=== PATIENT | male | born 1985 | race Caucasian/White ===

== ENCOUNTER 2021-01-07 11:59 | Emergency (ER) | payer MEDICARE, MEDICAID, SELFPAY ==
[2021-01-07 12:05] VITALS: BP 132/76; PULSE 98; RESP 16; TEMP 37.1; O2SAT 98
--- NOTE | 2021-01-07 12:17 | ED.GENADULT ---
HPI - General Adult General Chief complaint: Urogenital-Male Stated complaint: std testing Time Seen by Provider: 01/07/21 12:17 Source: patient and RN notes reviewed Mode of arrival: ambulatory Limitations: no limitations History of Present Illness HPI narrative: 35-year-old male presents with possible STD complaints for the past 2 days. Scott reports girlfriend told him she tested positive for Chlamydia on 01/05/2021. Denies dysuria, burning, urgency, and frequency. No treatment. Denies fever. Denies nausea, vomiting, and abdominal pain. Tolerating liquids well. No significant penile pain. No penile discharge. Concern for STDs due to girlfriend reporting findings and unprotected intercourse. Denies unprotected intercourse with multiple partners. No flank pain. No exacerbating factors. Denies unusual penile bleeding. Remains active. The patient reports he was diagnosed with COVID-10 September 2020, no current symptoms. The patient reports he is not waiting for the results of a COVID-19 lab test. The patient reports he do not have chills, weakness, or fatigue. The patient reports he do not have a new or worsening cough or shortness of breath. Denies chest pain. The patient reports he do not have any rhinorrhea, congestion, loss of taste or smell, sore throat, and diarrhea. Denies recent traveling. Denies concerns for COVID-19 or exposures been home with limited outdoor exposure except for essential household needs, work, and return home. At this time, patient is not suspected of having COVID-19. Some parts of this dictation were generated by voice recognition software and may contain typographical and/or grammatical inaccuracies. Related Data Allergies Allergy/AdvReac Type Severity Reaction Status Date / Time morphine Allergy Unknown Nausea and Verified 01/07/21 12:07 Vomiting Review of Systems Review of Systems: Narrative: CONSTITUTIONAL: Denies fever, chills, sweats. EYES: Denies visual changes, redness, discharge. ENT: Denies rhinorrhea, congestion, sore throat, otalgia. CARDIOVASCULAR: Denies chest pain, palpitations, edema. RESPIRATORY: Denies dyspnea, wheezing, cough. GASTROINTESTINAL: Denies abdominal pain, nausea, vomiting, diarrhea. GENITOURINARY: Denies dysuria, hematuria, genital discharge, itching. Complains of possible STD. SKIN: Denies rash or itching. MUSCULOSKELETAL: Denies acute back pain, joint pain, or myalgia. NEUROLOGIC: Denies numbness or focal weakness. PSYCHIATRIC: Denies anxiety or depression. All systems reviewed & are unremarkable except as noted in HPI and below. COUNTS INCLUDE 234 BEDS AT THE [facility] Past Medical History Medical History (Updated 01/13/21 @ 04:48 by BUNNY Juarez) COVID-19 (~08/2020) History of broken collarbone Smoker TBI (traumatic brain injury) Surgical History Surgical History (Updated 01/07/21 @ 12:36 by BUNNY Juarez) History of shoulder surgery clavicle surgery Family History Family History (Updated 01/07/21 @ 12:37 by BUNNY Juarez) Father Medical history unknown Mother Alive and well Social History Social History (Updated 01/07/21 @ 12:38 by BUNNY Juarez) Smoking packs per day: 0.5 Smoking cigarettes per day: 10.0 Years smoked: 10 Smoking pack-years: 5.00 Smoking status: Current every day smoker Tobacco type: cigarettes Second hand tobacco smoke exposure: Yes Alcohol intake: never Substance use: current Substance use type: marijuana Living arrangements: with family Occupation/Education: occupation Gender identity (if verbalized by the patient): Male Sexual Orientation (if Verbalized by the Patient): Straight or Heterosexual Comments At time of signature, agree with nurse past medical, surgical, social, and family history. There is no relevant family history pertinent to the presenting complaint. Exam Narrative: Exam Narrative: GENERAL: This is a well-nourished, well-dev
--- NOTE | 2021-01-07 12:34 | PC.NURSE ---
no culture sent per provider
[2021-01-07] MEDS: metroNIDAZOLE 250 MG TABLET 2000 MG PO (12:40)
[2021-01-07] MEDS: LIDOCAINE HCL 1% LOCAL INJ 10 ML VIAL 1.8 ML INFILTRATE (12:50)
[2021-01-07] MEDS: cefTRIAXone 1 GM VIAL 0.5 GM IM (12:50)
--- NOTE | 2021-01-07 13:51 | PC.NURSE ---
Addendum entered by Nenita Ruiz RN 01/07/21 13:52: pharmacy aware of need to refill rocephin 250mg vials Original Note: noted confirmed orders with Aurea Omer NP prior to administration
== END 2021-01-07 13:10 | disposition home or self-care (01) ==
PROVIDERS: Emergency Provider Nurse Practitioner Family
DX: Z20.2 Contact with and (suspected) exposure to infections with a predominantly sexual mode of transmission (principal); F17.210 Nicotine dependence, cigarettes, uncomplicated
CPT/HCPCS: 81003; 87491; 87591; 87661; 96372; 99213; A9270; G0463; J0696

== ENCOUNTER 2022-02-07 17:55 | Emergency (ER) | payer MEDICARE, MEDICAID, SELFPAY ==
--- NOTE | 2022-02-07 18:02 | ED.BACK ---
HPI - Back Pain/Injury General Chief Complaint: Back Pain/Injury Stated Complaint: Back Injury Time Seen by Provider: 02/07/22 18:17 Source: patient and RN notes reviewed Mode of arrival: ambulatory Limitations: no limitations History of Present Illness HPI Narrative: 36-year-old male presents with concern for injuries after falling during a seizure. Reports prior to arrival he had a seizure and fell into a [employer] truck. He is reporting left lower jaw pain, neck pain, facial pain, coccyx pain. He denies being on blood thinners. Reports he lost consciousness during the seizure is currently having blurry vision. He reports this happens to me all the time . Patient reports a history of seizures after a traumatic brain injury for which he takes Keppra. MD elicited complaint: back pain Related Data Home Medications Medication Instructions Recorded Confirmed levetiracetam 1,000 mg PO DAILY 02/07/22 02/07/22 Allergies Allergy/AdvReac Type Severity Reaction Status Date / Time morphine Allergy Unknown Nausea and Verified 02/07/22 18:13 Vomiting Review of Systems Review of Systems: CONSTITUTIONAL: Denies malaise, chills, sweats, or fever. EYES: Reports blurry vision CARDIOVASCULAR: Denies chest pain, palpitations, or edema. RESPIRATORY: Denies cough or dyspnea. GASTROINTESTINAL: Denies abdominal pain, nausea, vomiting, diarrhea, loss of bowel function GENITOURINARY: Denies dysuria, hematuria, frequency, loss of bladder function. SKIN: Denies rash or itching. MUSCULOSKELETAL: Reports mid back pain, reports left jaw, ear pain, facial pain NEUROLOGIC: Reports recent seizure, tingling in his legs All systems reviewed & are unremarkable except as noted in HPI and below PMFSH Past Medical History Medical History (Updated 02/07/22 @ 18:45 by Dhara Lauren NP) COVID-19 (~08/2020) History of broken collarbone Smoker TBI (traumatic brain injury) Surgical History Surgical History (Updated 01/07/21 @ 12:36 by BUNNY Juarez) History of shoulder surgery clavicle surgery Family History Family History (Updated 01/07/21 @ 12:37 by BUNNY Juarez) Father Medical history unknown Mother Alive and well Social History Social History (Updated 01/07/21 @ 12:38 by BUNNY Juarez) Smoking packs per day: 0.5 Smoking cigarettes per day: 10.0 Years smoked: 10 Smoking pack-years: 5.00 Smoking status: Current every day smoker Tobacco type: cigarettes Second hand tobacco smoke exposure: Yes Alcohol intake: never Substance use: current Substance use type: marijuana Gender identity (if verbalized by the patient): Male Sexual Orientation (if Verbalized by the Patient): Straight or Heterosexual Comments At time of signature, agree with nursing past medical, surgical, social and family history. There is no relevant family history pertinent to the presenting complaint Exam Narrative: GENERAL: Nontoxic-appearing, appears to be in pain HEAD: Normocephalic abrasions noted to the left side of the face EYES: PERRLA NECK: Supple. CHEST: Speaks in complete sentences no respiratory distress. HEART: Regular rate and rhythm. SKIN: Abrasions noted to the left face NEURO: Alert and oriented x3, seems confused at times PSYCH: Tearful Course Course Emergency Course: Discussed with patient that a more appropriate place for his care would be the emergency room due to his recent seizure, his stated complaints, appearance upon exam which is including tearful crying, he appears to be in pain, he at times does not seem fully coherent. Patient declined transfer to the emergency room 3 times, despite repeated explanations that this is not an appropriate level of care. Patient states that this happens all the time and he is not bleeding inside of his brain. After patient's grandmother arrived she was able to talk him into going to the emergency room however she was not able to talk
[2022-02-07 18:03] VITALS: BP 132/81; PULSE 128; RESP 14; TEMP 37.1; O2SAT 97
--- NOTE | 2022-02-07 18:17 | PC.NURSE ---
Pt unsure of medications other then Keppra at this time.
== END 2022-02-07 18:40 | disposition short-term general hospital (02) ==
PROVIDERS: Emergency Provider Nurse Practitioner
DX: G40.909 Epilepsy, unspecified, not intractable, without status epilepticus (principal); S09.90XA Unspecified injury of head, initial encounter; W19.XXXA Unspecified fall, initial encounter; F17.210 Nicotine dependence, cigarettes, uncomplicated; F12.90 Cannabis use, unspecified, uncomplicated; Z87.820 Personal history of traumatic brain injury; Z86.16 Personal history of COVID-19
CPT/HCPCS: 99213; G0463

== ENCOUNTER 2025-01-21 13:45 | Emergency (ER) | payer MEDICARE, MEDICAID, SELFPAY ==
[2025-01-21 13:59] VITALS: BP 119/74; PULSE 97; RESP 16; TEMP 35.7; O2SAT 100
[2025-01-21] MEDS: KETOROLAC (*BKC) 60 MG/2 ML VIAL IM (14:18)
--- NOTE | 2025-01-21 14:25 | ED.SKABFB ---
HPI - Skin/Abscess/Foreign Bdy General Chief complaint: Skin/Abscess/Foreign Body Stated complaint: Skin Sore/Face Time Seen by Provider: 01/21/25 14:10 Source: patient and RN notes reviewed Mode of arrival: ambulatory Limitations: no limitations History of Present Illness HPI narrative: 39-year-old male presents Express Care complaining right facial swelling and a wound to his right face for last 2 months. Patient does an ingrown hair that is been draining yellow discharge over the last 2 months has gotten progressively worse. He said this week he says he feels like his vision is becoming more blurry on the right eye and it hurts to open his jaw. Patient has significant past medical history includes seizure disorder. Patient has tried anything [id number] other than using marijuana for symptom management. Patient denies any swelling inside his mouth, difficulty breathing, difficulty swallowing, chest pain, fevers, body aches, chills. Patient rates his pain a 10/10. Related Data Home Medications ?Medication ?Instructions ?Recorded ?Confirmed ?Last Taken ?Type levetiracetam 1,000 mg tablet 1,000 mg PO DAILY 02/07/22 02/07/22 Unknown History Allergies Allergy/AdvReac Type Severity Reaction Status Date / Time morphine Allergy Unknown Nausea and Verified 01/21/25 13:59 Vomiting Review of Systems Review of Systems: CONSTITUTIONAL: Denies fever, chills, or sweats. EYES: Denies visual changes, redness, or discharge. ENT: Denies rhinorrhea, congestion, sore throat, or otalgia. CARDIOVASCULAR: Denies chest pain, palpitations, or edema. RESPIRATORY: Denies cough or dyspnea. GASTROINTESTINAL: Denies abdominal pain, nausea, vomiting, or diarrhea. GENITOURINARY: Denies dysuria or hematuria. SKIN: Denies rash or itching. Positive for wound on face. MUSCULOSKELETAL: Denies back pain, joint pain, or myalgia. NEUROLOGIC: Denies headache, numbness, or weakness. PSYCHIATRIC: Denies anxiety or depression. All other systems reviewed are negative, except as documented in HPI. [facility] Past Medical History Medical History COVID-19 (~08/2020) Smoker History of broken collarbone TBI (traumatic brain injury) Surgical History Surgical History History of shoulder surgery clavicle surgery Family History Family History Father Medical history unknown Mother Alive and well Social History Social History Smoking packs per day: 0.5 Smoking cigarettes per day: 10.0 Years smoked: 10 Smoking pack-years: 5.00 Smoking status: Current every day smoker Tobacco type: cigarettes Second hand tobacco smoke exposure: Yes Alcohol intake: never Substance use: current Substance use type: marijuana Living arrangements: with family Occupation/Education: occupation Gender identity (if verbalized by the patient): Male Sexual Orientation (if Verbalized by the Patient): Straight or Heterosexual Comments At the time of my signature, I reviewed and agree with the nursing past medical, surgical, social, and family history. There is no relevant family history pertinent to the patient complaint. Exam Narrative: GENERAL: This is a well-nourished, well-developed adult, in no apparent distress. They are non ill-appearing, nontoxic appearing. HEAD: normocephalic, atraumatic. EYES: Sclera clear/white. Conjunctiva normal. Vision is grossly intact. Extraocular movements intact. Pupils PERRLA EARS: External ears normal, auditory canals clear and without drainage, TMs normal without perforation. Hearing grossly intact. NOSE: External nose normal with no obvious nasal discharge, nasal turbinates without redness, no rhinorrhea. THROAT: Mucous membranes moist, posterior pharynx clear, without erythema or swelling. Uvula midline. MOUTH: Teeth intact. No gingivitis. No area of fluctuance or swelling. No tenderness or swelling in the tongue. No trismus. NECK: Neck supple, non-tender without lymphadenopathy, masses or thyromegaly. CARDIOVASCULAR: Regular rate and rhythm without murmurs, gallops, or rubs. RESPIRATORY: Clear to auscultation. Breath sounds equal bilaterally. No wheezes, rales, or rhonchi. Respiratory effort nonlabored normal respiratory rate, no apparent respiratory distress. GASTROINTESTINAL: Abdomen soft, non-tender, nondistended. Bowel sounds are active. No hepato-splenomegaly, or palpable masses. No guarding. SKIN: Face: Single raised erythematous papule to right side of the patient's face located near the right jaw. There is surrounding cellulitis and induration. The wound measures approximately 1.5 cm by 1.5 cm. Wound is draining yellow discharge. No area of fluctuance. No obvious redness, swelling, or cellulitis around periorbital region. There is tender to palpation to the periorbital region. NEURO: awake, alert, and oriented to person, place and time. There were no obvious focal neurologic abnormalities. EXTREMITIES: No joint tenderness, effusion, or edema noted. Course Course Emergency Course: Portions of this record may have been created with voice recognition software Level of Care: Express Care Visit Vital Signs Vital signs: Vital Signs Temperature 96.2 F L 01/21/25 13:59 Pulse Rate 97 01/21/25 13:59 Respiratory Rate 16 01/21/25 13:59 Blood Pressure 119/74 01/21/25 13:59 Pulse Oximetry 100 01/21/25 13:59 Oxygen Delivery Room Air 01/21/25 13:59 Temperature 96.2 F L 01/21/25 13:59 Pulse Rate 97 01/21/25 13:59 Respiratory Rate 16 01/21/25 13:59 Blood Pressure 119/74 01/21/25 13:59 Pulse Oximetry 100 01/21/25 13:59 Oxygen Delivery Room Air 01/21/25 13:59 Reviewed MDM - Skin/Abscess/Foreign Bdy MDM Narrative Medical decision making narrative: Given patient's symptoms and his complaint of vision changes, it is recommended that this patient seek a higher level care at an emergency department for further evaluation and management. Patient adamantly refusing to go to the emergency department for further evaluation. Patient has swelling to patient's right side, however the wound is draining, therefore no need for incision and drainage. Patient is having vision changes, there is no redness or swelling around the orbit of the patient's right eye however that orbit is tender to palpation. No evidence of abscess formation inside the oropharynx. Patient will be signing out against medical advice. Patient was given a dose of Toradol for pain with significant improvement of pain. Will treat with antibiotics antibiotics with cephalexin and Bactrim. Strict ER return precautions discussed. Differential Diagnosis Differential diagnosis: Likely abscess of skin or subcutaneous tissue, cellulitis and other (Orbital cellulitis) Critical Care Time Critical Care Time Critical Care Time: No Discharge Plan Discharge Clinical Impression: Cellulitis Qualifiers: Site of cellulitis: face Qualified Code(s): L03.211 - Cellulitis of face Patient Disposition: Left Against Medical Advice Condition: Stable Additional Instructions: You have decided to leave against medical advice. Please take the antibiotics as directed. If you symptoms do not get better in the next couple days on antibiotics, you have worsening vision changes, or your condition worsens, you need to go to the ER immediately. Patient Language: Romansh Prescriptions: New sulfamethoxazole-trimethoprim [Bactrim DS] 800-160 mg tablet 1 tablet PO Q12H 7 Days Qty: 14 0RF cephalexin 500 mg capsule 500 mg PO Q6H 7 Days Qty: 28 0RF No Action levetiracetam 1,000 mg tablet 1,000 mg PO DAILY Follow-up/Referrals: UNKNOWN,DOCTOR [Primary Care Provider] - Time of Disposition: 14:15
--- OUTSIDE RECORDS SUMMARY | 2025-01-21 14:38 | XMS_ITS | Continuity of Care Document ---
Author Organization [facility] Address [address] [place] [address] Phone Care Team Providers Care Bird Raiser Name Role Phone Will Trejo MD Unavailable Unavailable Advance Directives Directive Yes / No Effective Date File Name No Information Encounters Encounter Description Practice Location Reason(s) For Visit Diagnoses Date Provider Providers Copied on Encounter [facility], [address], [place], [place], [id number], [place] tel:[phone] [address] Julio ARGUELLES Professional No Information Nov-3 1-200 5 Maya Solis. [address] [facility] [address], [place], [place], [id number], [place]. tel:[phone] Family History Family Member Type Diagnosis Age At Onset No Information Payers Payer name Insurance type Covered democrat ID Authoriza tion(s) [facility] [id number] Social History Type Description Quantity Date Captured [...]
--- OUTSIDE RECORDS SUMMARY | 2025-01-21 14:38 | XMS_ITS | CONTINUITY OF CARE DOCUMENT ---
Author Name howie denise Address Unknown Organization [facility] Address [address] [place] [address] Phone [phone] Care Team Providers Care Arc Cutter Plasma Arc Name Role Phone Layton REDDY, Diony Unavailable LIZZY SOTO MD Unavailable INSURANCE PROVIDERS Payer name Policy type / Coverage type [place] red green party ID [id number] PAY [id number]
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
--- OUTSIDE RECORDS SUMMARY | 2025-01-21 14:38 | XMS_ITS | Encounter Summary ---
Author Organization [facility] Address [address] [place] [address] Phone Care Team Providers Care Fire Support Man Name Role Phone Ricky Lilly MD Primary Care Provider [phone] Pete Hsieh PAC Unavailable [phone] Rosa Cho DIDACTIC INSTRUCTOR, INSPECTOR METAL FABRICATING Unavailable [phone]- [phone] Encounter Details Date Type Department Care Team (Late st Contact Info) Description 01/21/2025 Telephone [facility] - Family Medicine [facility] [address] [place] [address] Ricky Lilly MD [address] [id number] Social History Tobacco Use Types Packs/Day Years Used Date Smoking Tobacco: Every Day Cigarettes Smokeless Tobacco: Never Alcohol Use Standard Drinks/Week Comments Yes 0 (1 standard drink = 0.6 oz pur e alcohol) rarely C Utilities Answer Date Recorded In the past 12 months has [employer], gas, oil, or water company threatened to shut off services in your [...] any time in the past 12 m [facility], were you homeless or living in a skilled nursing (including now)? No 04/27/2024 Sexually Active Control Partners Comments Yes Female Sex and Gender Information Value Date Recorded Sex Assigned at Not on file Legal Sex Male 8:02 PM CDT Gender Identity Not on file Sexual Orientation Not on file documented as of this encounter Miscellaneous Notes * Telephone Encounter - Ricky Lilly MD - 01/21/2025 11:10 AM CDT Schedule him for telephone visit with [place] since he no-showed. Thanks! 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
--- OUTSIDE RECORDS SUMMARY | 2025-01-21 14:38 | XMS_ITS | Clinical Summary ---
Author Organization [facility] Address [address] [place] [address] Care Team Providers Care Aircraft Inspection Record Clerk Name Role Phone Unavailable Primary Care Provider Unavailabl e Source Comments [facility],non-owned Affiliates and Associated Physician Practices is amultiple site organization consisting of ambulatory clinics and hospital sitesin [place], [place], [place] and [place]. This disclosure is being madepursuant to the Care Everywhere program and may not contain all information available regarding this patient. Last updated 18.[facility] [employer] Social History Tobacco Use Types Packs/Day Years Used Date Smoking Tobacco: Never Assessed Sex and Gender Information Value Date Recorded Sex Assigned at Not on file Legal Sex Male 5:01 AM CDT Gender Identity Not on file Sexual Orientation Not on file Last Filed Vital Signs Vital Sign Reading Time Taken Comments Blood Pressure 121/73 07/01/2016 8:17 AM CDT Pulse 71 07/01/2016 8:17 AM CDT Temperature 36.8 C (98.3 F) 07/01/2016 8:17 AM CDT Respiratory Rate 18 07/01/2016 8:17 AM CDT Oxygen Saturation 100% 07/01/2016 8:17 AM CDT Inhaled Oxygen Concentration - - Weight - - Height 180.3 cm (5' 11 ) 06/30/2016 12:46 AM CDT Body Mass Index - - Plan of Treatment Health Maintenance Due Date Last Done Comments LIPID TESTING 1983 HIV SCREENING 1998 HEPATITIS C SCREENING 04/28/2001 DTAP/TDAP/TD VACCINES (1 - Tdap) 2002 HEPATITIS B VACCINE (1 of 3 - 19+ 3-dose series) 2002 COVID-19 VACCINE (2023-2 5 season) 2024 DEPRESSION SCREENING 09/23/2024 INFLUENZA VACCINE (Season Ended) 2025 ZOSTER VACCINE (1 of 2) 2033 HIB VACCINE Aged Out No longer eligi ble based on patient's age to complete this topic HPV VACCINE Aged Out No longer eligi ble based on patient's age to complete this topic MENINGOCOCCAL (Group B) VACC INE SHARED DECISION-MAKING Aged Out No longer eligibl e based on patient's age to complete this topic MENINGOCOCCAL GROUPS A/C/Y/W VACCINE Aged Out No longer eligible b ased on patient's age to complete this topic PNEUMOCOCCAL VACCINE Aged Out No long er eligible based on patient's age to complete this topic Insurance MEDICARE MEDICAID - [facility] OF [facility]
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
== END 2025-01-21 14:48 | disposition left against medical advice (07) ==
DX: L03.211 Cellulitis of face (principal); G40.909 Epilepsy, unspecified, not intractable, without status epilepticus; F17.210 Nicotine dependence, cigarettes, uncomplicated; F12.90 Cannabis use, unspecified, uncomplicated; Z86.16 Personal history of COVID-19; Z87.820 Personal history of traumatic brain injury
CPT/HCPCS: 96372; 99213; G0463; J1885

== ENCOUNTER 2025-04-01 08:24 | Emergency (ER) | payer MEDICARE, MEDICAID, SELFPAY ==
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
--- OUTSIDE RECORDS SUMMARY | 2025-04-01 08:28 | XMS_ITS | Continuity of Care Document ---
Author Organization [facility] Address [address] [place] [address] Phone Care Team Providers Care Oil Heater Operator Name Role Phone Will rTejo MD Unavailable Unavailable Advance Directives Directive Yes / No Effective Date File Name No Information Encounters Encounter Description Practice Location Reason(s) For Visit Diagnoses Date Provider Providers Copied on Encounter [facility], [address], [place], [place], [id number], [place] tel:[phone] SEC Julio ARGUELLES Professional No Information Nov-3 1-200 5 Maya Solis. [address] [facility] [address], [place], [place], [id number], [place]. tel:[phone] Family History Family Member Type Diagnosis Age At Onset No Information Payers Payer name Insurance type Covered democrat ID Authoriza tion(s) [facility] [id number] Social History Type Description Quantity Date Captured [...]
--- OUTSIDE RECORDS SUMMARY | 2025-04-01 08:28 | XMS_ITS | Clinical Summary ---
Author Organization [facility] Address [address] [address] Phone Care Team Providers Care Dry Wall Sprayer Name Role Phone Ricky Lilly MD Primary Care Provider [phone] Pete Hsieh PAC Unavailable [phone] Rosa Cho NEUROPSYCHOLOGY DIRECTOR, SENIOR STATISTICIAN Unavailable [phone]- [phone] Allergies Active Allergy Reactions Criticality Noted Date Comments Morphine Vomiting 06/06/2017 Medications acetaminophen-c odeine (TYLENOL #3) 300-30 MG TabletIndicatio ns:Acute pain of right shoulder Take 1 Tablet by mouth 2 times daily. 20 Tablet 4 Active Additional Information Patient not taking.Reported on 03/01/2025 tiZANidine (ZANAFLEX) 2 MG Tablet Take 1 - 2 pills at bedtime. 40 Tablet 4 Active Additional Information Patient not taking.Reported on 03/01/2025 lamoTRIgine (LaMICtal) 25 MG TabletIndicatio ns:Seizure disorder [...] Encounters Date Type Department Care Team Description 03/01/2025 11:30 AM CDT Office Visit [facility] [address] [place] [address] Gene Araiza APRN, CASER IN Chronic right shoulder pain (Primary Dx) Discharge Disposition: Discharged to home or Selfcare 03/01/2025 Travel [facility] [place] [address] Ricky Lilly MD 01/15/2025 5:36 PM CDT - 01/15/2025 8:02 PM CDT [facility] [address] [place] [address] Lissa Wade APRN, CARYN Pain of right lower leg Discharge Disposition: Discharged to home or Selfcare 01/15/2025 Telephone [facility] [address] [place] [address] Ricky Lilly MD 01/15/2025 Travel from Last 3 Months Immunizations Immunization Administration [...] = 0.6 oz pur e alcohol) rarely [facility] Utilities Answer Date Recorded In the past 12 months has th e Standard Treasury, gas, oil, or water company threatened to shut off services in your home? No 04/27/2024 PHQ-2 Answer Date Recorded Total Score - Questions 1-9 0 05/2025 Hunger Vital Sign Answer Date Recorded Within [...] any time in the past 12 [facility], were you homeless or living in a custodial (including now)? No 04/27/2024 Sexually Active Control Partners Comments Yes Female Sex and Gender Information Value Date Recorded Sex Assigned at Not on file Legal Sex Male 8:02 PM CDT Gender Identity Not on file Sexual Orientation Not on file Last Filed Vital Signs Vital Sign Reading Time Taken Comments Blood Pressure 120/80 03/01/2025 11:00 AM CDT Pulse 90 03/01/2025 11:00 AM CDT Temperature 36.8 C (98.2 F) 03/01/2025 11:00 AM CDT Respiratory Rate 16 03/01/2025 11:00 AM CDT Oxygen Saturation 99% 03/01/2025 11:00 AM CDT Inhaled Oxygen Concentration - - Weight 81.2 kg (179 lb) 03/01/2025 11:00 AM CDT Height 180.3 cm (5' 11) 03/01/2025 11:00 AM CDT Body Mass Index 24.97 03/01/2025 11:00 AM CDT Plan of Treatment Health Maintenance Due Date Last Done Comments DTaP/Tdap/Td Immunization (5 - Tdap) 1990 04/30/1985, 10/14/1984, 06/11/1984, Additional history exists Human Papillomavirus (HPV) Immunization (1 - Male 3-dose series) 1998 Hepatitis B Immunization (1 of 3 - 19+ 3-dose series) 2002 Pneumococcal Immunization Combined (2 of 2 - PCV) 06/17/2018 06/17/2017 SARS-COV-2 Immunization (1 - season) 2024 Influenza Immunization (#1) 2025 06/07/2017, 1 Respiratory Syncytial Virus (RSV) Immunization (Adult) (1 - 1-dose 75+ series) 2058 Hepatitis C Virus (HCV) Screening Completed 05/17/2021 Meningococcal Immunization (ACWY) Aged Out No longer [...] Valentín Veliz M.D. KH: RIK Report ID: [id number] Reading Location: [id number] Procedure Note Valentín Veliz MD - 01/15/2025 [...] signed by Valentín JOLLY: RIK Report ID: [id number] Reading Location: [id number] IMPRESSION: No acute intracranial findings. Michele Foote [...] signed by Valentín JOLLY: RIK Report ID: [id number] Reading Location: [id number] Procedure Note Valentín Veliz MD - 01/15/2025 [...] signed by Valentín JOLLY: RIK Report ID: [id number] Reading Location: [id number] IMPRESSION: No acute osseous abnormality. Michele Foote MD [facility] DIAGNOSTIC ORDERABLES Final Result * XR SHOULDER [...] signed by Valentín JOLLY: RIK Report ID: [id number] Reading Location: [id number] Procedure Note Valentín Veliz MD - 01/15/2025 [...] signed by Valentín JOLLY: RIK Report ID: [id number] Reading Location: [id number] IMPRESSION: No acute osseous abnormality. Michele Foote MD [facility] DIAGNOSTIC ORDERABLES Final Result * Hepatitis C (HCV) Antibody (05/17/2021 6:46 PM CDT) hepatitis C antibody 0.14 <1 S/CO [facility] [id number] B 05/18/2021 2:50 PM CDT [facility] Comment: Signal/Cutoff ratio < 0.79 is Nondetected Signal/Cutoff ratio 0.80-0.99 is Grayzone Signal/Cutoff ratio > 0.99 is Detected Supplemental assays are recommended if signal/cutoff ratio is >/=1.00. Signal/cutoff ratio result >/= 5.00 is 97% predictive of positivity for recombinant immunoblot assay (RIBA) and will be reported to the [place] Department of Public [facility] as required. Blood Venipuncture / Unknown 05/17/2021 6:46 PM CDT 05/17/2021 6:56 PM CDT us Mike Candelario MD CHEMISTRY ORDERABLES Seema mondragon Result [facility] [address] [id number], from Last 3 Months or Most Recently Relevant to Health Maintenance Insurance MEDICAID [place] MEDICARE C [employer] [facility] [place] [address] MED[place]ID [place] MEDICARE C AET[employer] Advance Directives * Full [...] measures to stabilize the patient. Care Teams Dry Wall Sprayer Relationship Specialty Start Date End Date Ricky Lilly MD [address] [address] PCP - General Family Medicine 08/24/24 Pete Hsieh, PAC [address] [address] Physician Music Ministries Director Physician Music Ministries Director 10/05/24 Rosa Cho APRN, SENIOR STATISTICIAN [address] [place] [address] Nurse Practitioner Advanced Practice Nurse 10/20/24
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
--- OUTSIDE RECORDS SUMMARY | 2025-04-01 08:28 | XMS_ITS | Clinical Summary ---
Author Organization [facility] Address [address] [place] [address] Care Team Providers Care Boiler Fitter Name Role Phone Unavailable Primary Care Provider Unavailabl e Source Comments [facility],non-owned Affiliates and Associated Physician Practices is amultiple site organization consisting of ambulatory clinics and hospital sitesin [place], [place] and [place]. This disclosure is being madepursuant to the Care Everywhere program and may not contain all information available regarding this patient. Last updated 18.[facility] Public[employer] Social History Tobacco Use Types Packs/Day Years [...] Weight - - Height 180.3 cm (5' 11) 06/30/2016 12:46 AM CDT Body Mass Index [...] topic Insurance MEDICARE MEDICAID - OUT OF [facility]
--- OUTSIDE RECORDS SUMMARY | 2025-04-01 08:29 | XMS_ITS | Continuity of Care Document ---
Author Organization [facility] Address [address] [place] [address] Phone Care Team Providers Care Research & Insights Executive Name Role Phone Will Trejo MD Unavailable Unavailable Advance Directives Directive Yes / No Effective Date File Name No Information Encounters Encounter Description Practice Location Reason(s) For Visit Diagnoses Date Provider Providers Copied on Encounter [facility], [address], [place], [place], [id number], [place] tel:[phone] SEC Julio ARGUELLES Professional No Information Nov-3 1-200 5 Maya Solis. [address], [place], [place], [id number], [place]. tel:[phone] Family History Family Member Type Diagnosis Age At Onset No Information Payers Payer name Insurance type Covered republican ID Authoriza tion(s) [facility] [id number] Social History Type Description Quantity Date Captured [...]
[2025-04-01 08:35] VITALS: BP 148/92; PULSE 83; RESP 20; TEMP 36.4; O2SAT 100
--- NOTE | 2025-04-01 09:24 | ED_ITS ---
HPI - Skin/Abscess/Foreign Bdy General Chief complaint: Skin/Abscess/Foreign Body Stated complaint: chin/right ear pain Time Seen by Provider: 04/01/25 09:25 Source: patient Mode of arrival: ambulatory Limitations: no limitations History of Present Illness HPI narrative: 39 y/o male presented for c/o painful abscess to the right jaw x2 days. Says the site is draining clear fluid. Says he has had an abscess at the same site 2 months ago, which resolved with antibiotics. 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 Related Data Home Medications ?Medication ?Instructions ?Recorded ?Confirmed ?Last Taken ?Type levetiracetam 1,000 mg tablet 1,000 mg PO DAILY 02/07/22 02/07/22 Unknown History Allergies Allergy/AdvReac Type Severity Reaction Status Date / Time morphine Allergy Unknown Nausea and Verified 04/01/25 08:59 Vomiting Review of Systems Review of Systems: CONSTITUTIONAL: Denies body aches, fever, chills, or sweats. EYES: Denies visual changes, redness, or discharge. ENT: Denies rhinorrhea, congestion CARDIOVASCULAR: Denies chest pain, palpitations, or edema. RESPIRATORY: Denies cough or dyspnea. GASTROINTESTINAL: Denies abdominal pain, nausea, vomiting, or diarrhea. SKIN: reports abscess to right jaw MUSCULOSKELETAL: Denies back pain, joint pain, or myalgia. NEUROLOGIC: Denies headache, numbness, tingling, or weakness. [facility] Past Medical History Medical History COVID-19 (~08/2020) Smoker History of broken collarbone TBI (traumatic brain injury) Surgical History Surgical History History of shoulder surgery clavicle surgery Family History Family History Father Medical history unknown Mother Alive and well Social History Social History Smoking packs per day: 0.5 Smoking cigarettes per day: 10.0 Years smoked: 10 Smoking pack-years: 5.00 Smoking status: Current every day smoker Tobacco type: cigarettes Second hand tobacco smoke exposure: Yes Alcohol intake: never Substance use: current Substance use type: marijuana Living arrangements: with family Occupation/Education: occupation Gender identity (if verbalized by the patient): Male Sexual Orientation (if Verbalized by the Patient): Straight or Heterosexual Comments At time of signature, I have reviewed and agree with nursing past medical, surgical, social and family history unless otherwise noted. Please see nursing chart for further information. There is no relevant family history pertinent to the presenting complaint Exam Narrative: GENERAL: Well-appearing HEAD: Normocephalic, atraumatic. Preauricular lymphadenopathy. EYES: conjunctivae clear, and EOMI. ENT: Mucous membranes moist. Oropharynx without edema, erythema or lesions. NECK: Supple. No lymphadenopathy CHEST: Clear to auscultation. HEART: Regular rate and rhythm. SKIN: Warm, dry. Right mandibular area with approx 1.5cm area of erythema and yellow serous crusted drainage. Pt is minimally tolerant of palpation, does not appear to be fluctuance. Chappell hair surrounds the lesion. NEURO: Alert and oriented x3. Course Course Emergency Course: Patient is aware of diagnosis, understands and agrees to treatment plan. Anticipatory guidance given. Patient agrees to follow-up as directed and is aware of reasons to seek care at the emergency department. Portions of this record may have been created with voice recognition software Level of Care: Express Care Visit Vital Signs Vital signs: Vital Signs Temperature 97.6 F 04/01/25 08:35 Pulse Rate 83 04/01/25 08:35 Respiratory Rate 20 04/01/25 08:35 Blood Pressure 148/92 H 04/01/25 08:35 Pulse Oximetry 100 04/01/25 08:35 Oxygen Delivery Room Air 04/01/25 08:35 Temperature 97.6 F 04/01/25 08:35 Pulse Rate 83 04/01/25 08:35 Respiratory Rate 20 04/01/25 08:35 Blood Pressure 148/92 H 04/01/25 08:35 Pulse Oximetry 100 04/01/25 08:35 Oxygen Delivery Room Air 04/01/25 08:35 Reviewed MDM - Skin/Abscess/Foreign Bdy MDM Narrative Medical decision making narrative: Discussed physical exam findings c/w abscess to right mandible area, tender with light palpation pt is minimally tolerant of the exam. Does not appear to be fluctuant, though the exam is limited due to his cooperation. RX abx. Advised f/u with pcp. Advised supportive measures and signs/symptoms to go to the ER. Pt is appropriate for outpt treatment and f/u. Differential Diagnosis Differential diagnosis: Likely abscess of skin or subcutaneous tissue, viral exanthem, dermatophytosis, urticaria, herpes zoster, cellulitis, eczema, insect bites, impetigo and contact dermatitis Discharge Plan Discharge Clinical Impression: Abscess of skin or subcutaneous tissue Patient Disposition: Home Condition: Stable Instructions: Antibiotic Form, Abscess (ED) Additional Instructions: You may shower and Cleanse the area with warm soapy water at least daily Warm compresses at least 4 times a day to the site to help expel any additional drainage. Keep your wound covered while draining Take antibiotic as directed Use the ointment to the site as prescribed Tylenol and ibuprofen every 8 hours for pain as needed Follow up with your primary care physician in 3 days for a wound check. Go to the Emergency Department immediately if you develop any of the following symptoms: Fevers, Increased redness, pain, or swelling around where your abscess was, generalized weakness or vomiting or any other concerns Dermatologists: [facility] Evelyn [place] [phone] [facility] [address] [phone] [phone] Patient Language: Finnish Prescriptions: New sulfamethoxazole-trimethoprim [Bactrim DS] 800-160 mg tablet 1 tablet PO Q12H 7 Days Qty: 14 0RF cephalexin 500 mg capsule 500 mg PO Q6H 7 Days Qty: 28 0RF mupirocin 2 % ointment 1 applic topical BID 14 Days Qty: 22 0RF No Action levetiracetam 1,000 mg tablet 1,000 mg PO DAILY Follow-up/Referrals: PHYSICIAN,WORSHIP LEADER [Primary Care Provider] - Time of Disposition: 09:32
== END 2025-04-01 09:35 | disposition home or self-care (01) ==
PROVIDERS: Emergency Provider Nurse Practitioner Family
DX: L02.01 Cutaneous abscess of face (principal); F17.210 Nicotine dependence, cigarettes, uncomplicated; Z87.820 Personal history of traumatic brain injury; Z86.16 Personal history of COVID-19
CPT/HCPCS: 99213; G0463

== ENCOUNTER 2025-06-20 11:33 | Emergency (ER) | payer MEDICARE, MEDICAID, SELFPAY ==
--- OUTSIDE RECORDS SUMMARY | 2004-12-21 06:15 | XMS_ITS | Continuity of Care Document ---
Author Organization [facility] Address [address] [place] [address] Phone Care Team Providers Care Field Ring Assembler Name Role Phone Will Trejo MD Unavailable Unavailable Advance Directives Directive Yes / No Effective Date File Name No Information Encounters Encounter Description Practice Location Reason(s) For Visit Diagnoses Date Provider Providers Copied on Encounter [facility], [address], [place], [place], [id number], [place] tel:[phone] SEC Julio ARGUELLES Professional No Information Nov-3 1-200 5 Maya Solis. [address] [facility] [address], [place], [place], [id number], [place]. tel:[phone] Family History Family Member Type Diagnosis Age At Onset No Information Payers Payer name Insurance type Covered libertarian ID Authoriza tion(s) [facility] [id number] Social History Type Description Quantity Date Captured Comments Sex Male Smoking Status No Information Chief Complaint And Reason For Visit No Information Reason For Referral Reason For Referral No Information History Of Present Illness Encounter Date Complaint History Of Prese nt Illness No Information Functional Status Date Functional Assessmen t No Information Instructions Date Instruction Additional Infor mation No Information Assessments Type Assessment Date No Information Patient Care Teams Name Effective Dates (start - stop) Status Members No Information
[2025-06-20 11:37] VITALS: BP 140/100; PULSE 112; RESP 16; TEMP 36.8; O2SAT 100
--- OUTSIDE RECORDS SUMMARY | 2025-06-20 11:37 | XMS_ITS | Clinical Summary ---
Author Organization [facility] Address [address] [address] Phone Care Team Providers Care Municipal Services Manager Name Role Phone Ricky Lilly MD Primary Care Provider [phone] Pete Hsieh PAC Unavailable [phone] Rosa Cho ELECTRICAL CONTROL ASSEMBLER, SHREDDING MACHINE TENDER Unavailable [phone] Allergies Active Allergy Reactions Criticality Noted Date [...] lamoTRIgine (LaMICtal) 25 MG TabletIndicatio ns:Seizure disorder Take one tab po daily x 2 [...] Seizure disorder 06/06/2017 Acute tension-type headache 06/06/2017 Immunizations Immunization Administration Dates Next Due DT [...] = 0.6 oz pur e alcohol) rarely [employer] Answer Date Recorded In the past 12 months has th e [employer], gas, oil, or water [employer] threatened to shut off services in your [...] any time in the past 12 m [facility], were you homeless or living in a intermediate (including now)? No 04/27/2024 Sexually Active Control [...] of 3 - 19+ 3-dose series) 2002 Human Papillomavirus (HPV) Immunization (1 - 3-dose SCDM series) 2010 Pneumococcal Immunization Combined (2 of 2 - PCV) 06/17/2018 06/17/2017 Influenza Immunization (#1) 2025 06/07/2017, 1 SARS-COV-2 Immunization ( - season) 2025 Respiratory Syncytial Virus (RSV) Immunization (Adult) (1 - 1-dose 75+ series) 2058 Hepatitis C Virus (HCV) Screening Completed 05/17/2021 Meningococcal Immunization (ACWY) Aged Out No longer eligible based on patient's age to complete this topic Rotavirus Immunization Aged Out No lo nger eligible based on patient's age to complete this topic Procedures Procedure Name Priority Date/Time Associated Diagnosis Comments HEPATITIS C ANTIBODY STAT 05/17/2021 6:46 PM CDT from Last 3 Months or Most Recently Relevant to Health Maintenance Results * Hepatitis C (HCV) Antibody (05/17/2021 6:46 PM CDT) hepatitis C antibody 0.14 <1 S/CO [facility] ARCH [id number] B 05/18/2021 2:50 PM CDT [facility] Comment: Signal/Cutoff ratio < 0.79 is Nondetected Signal/Cutoff ratio 0.80-0.99 is Grayzone Signal/Cutoff ratio > 0.99 is Detected Supplemental assays are recommended if signal/cutoff ratio is >/=1.00. Signal/cutoff ratio result >/= 5.00 is 97% predictive of positivity for recombinant immunoblot assay (RIBA) and will be reported to the [place] [facility] as required. Blood Venipuncture / Unknown 05/17/2021 6:46 PM CDT 05/17/2021 6:56 PM CDT us Mike Candelario MD CHEMISTRY ORDERABLES Seema mondragon Result [facility] [address] [place] [address], from Last 3 Months or Most Recently Relevant to Health Maintenance Insurance MEDICAID [place] MEDICARE C [employer]ET[employer] [place] MED[place]ID [place] MEDICARE C AETNA Advance Directives [...] measures to stabilize the patient. Care Teams Municipal Services Manager Relationship Specialty Start Date End Date Ricky Lilly MD [address] [address] PCP - General Family Medicine 08/24/24 Pete Hsieh PAC [address] [address] Physician Environmental Studies Faculty Member Physician Environmental Studies Faculty Member 10/05/24 Rosa Cho APRN, SHREDDING MACHINE TENDER [address] [place] [address] Nurse Practitioner Advanced Practice Nurse 10/20/24
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
--- OUTSIDE RECORDS SUMMARY | 2025-06-20 11:37 | XMS_ITS | Clinical Summary ---
Author Organization [facility] Address [address] [place] [address] Care Team Providers Care Slot Floor Supervisor Name Role Phone Unavailable Primary Care Provider Unavailabl e Source Comments [facility],non-owned Affiliates and Associated Physician Practices is amultiple site organization consisting of ambulatory clinics and hospital sitesin [place], [place], [place] and [place]. This disclosure is being madepursuant to the Care Everywhere program and may not contain all information available regarding this patient. Last updated 18.[facility] [employer] Social History Tobacco Use Types Packs/Day Years [...] of 3 - 19+ 3-dose series) 2002 HPV VACCINE (1 - 3-dose SCDM series) 2010 DEPRESSION SCREENING 09/23/2024 COVID-19 VACCINE (2023-2 5 season) 2025 INFLUENZA VACCINE (#1) 2025 ZOSTER VACCINE (1 of 2) 2033 [...] topic Insurance MEDICARE MEDICAID - OUT OF STATE
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
== END 2025-06-20 11:55 | disposition home or self-care (01) ==
PROVIDERS: Emergency Provider Nurse Practitioner Family
DX: L73.1 Pseudofolliculitis barbae (principal); F17.210 Nicotine dependence, cigarettes, uncomplicated; F12.90 Cannabis use, unspecified, uncomplicated; Z86.16 Personal history of COVID-19; Z87.820 Personal history of traumatic brain injury
CPT/HCPCS: 99213; G0463